=== PATIENT | female | born 1995 | race Caucasian/White ===

== ENCOUNTER 2018-06-10 08:00 | Outpatient (CLI) | payer BC | END 2018-06-10 23:59 | LOC: LAB.R 08:00 | PROVIDERS: ATTEND Registered Nurse | DX: N89.8 Other specified noninflammatory disorders of vagina (principal); R10.2 Pelvic and perineal pain | CPT/HCPCS: 81001; 87086; 87491; 87591 ==

== ENCOUNTER → 2018-06-11 | Outpatient (CLI) | payer BC | LOC: LAB.R 08:00 | PROVIDERS: ATTEND Registered Nurse | DX: R30.0 Dysuria (principal) | CPT/HCPCS: 87086 ==

== ENCOUNTER 2018-06-26 15:13 | Outpatient (CLI) | payer BC ==
--- NOTE | 2018-06-27 22:50 | Ultrasound Report ---
Reason: PELVIC PAIN Procedure Date: 06/26/2018 Accession Number: [id number] / [id number] Procedure: US - Pelvic w/Transvaginal CPT Code: FULL RESULT: EXAM: PELVIC ULTRASOUND EXAM DATE: 06/26/2018 04:28 PM. CLINICAL HISTORY: Pelvic pain. COMPARISON: None. TECHNIQUE: Realtime transabdominal pelvic scan performed to identify the uterus and adnexa and as an overview of other pelvic structures, followed by transvaginal scan to provide greater detail of the uterus and adnexa, with static image documentation. FINDINGS: Uterus: 8.1 x 3.7 x 5.1 cm, volume 79.9 cc. Anteverted position. Normal overall size and echotexture. Masses: None. Endometrium: 7.4 mm. No endometrial mass or polyp. Cervix: Incidental nabothian cysts are noted. Right Ovary: 4.1 x 2.6 x 3.4 cm, volume 18.9 cc. Normal echotexture and blood flow. Solid echogenic 2.1 x 1.5 x 1.6 cm right ovarian mass like structure with mild vascularity. Left Ovary: 3.3 x 1.8 x 3.3 cm, volume 10.2 cc. Normal echotexture and blood flow. Free Fluid: None. Other: None. IMPRESSION: 1. Mildly vascular solid echogenic right ovarian 2.1 cm mass. No evidence of right ovarian torsion noted. Remaining right adnexa is unremarkable. Recommend follow-up ultrasound in 1-2 cycles to document resolution of findings. 2. Normal left ovary and adnexa. 3. Incidental nabothian cyst. Otherwise, normal endometrium and uterus. [facility]
== END 2018-06-26 15:14 | disposition home or self-care (01) ==
LOC: DI 15:13
PROVIDERS: ATTEND Registered Nurse
DX: R10.2 Pelvic and perineal pain (principal); N83.8 Other noninflammatory disorders of ovary, fallopian tube and broad ligament; N88.8 Other specified noninflammatory disorders of cervix uteri
CPT/HCPCS: 76830; 76856